=== PATIENT | female | born 1990 | race Caucasian/White ===

== ENCOUNTER → 2017-07-09 | Outpatient (CLI) | payer SELFPAY ==
--- NOTE | 2017-07-09 16:40 | RADIOLOGY REPORT (SQ) ---
EXAM DESCRIPTION: U/S OB 14+ TRNABD 1GES W/O DOP COMPLETED DATE/TIME: 07/09/2017 2:04 pm REASON FOR STUDY: ENCOUNTER FOR SUPERVISION OF OTHER NORMAL , SECOND TRIMESTER (Z34. Z34.82 ENCOUNTER FOR SUPRVSN OF NORMAL , SECOND TRI COMPARISON: None. TECHNIQUE: Static and Dynamic grayscale imaging performed of gravid uterus using transabdominal appr oach. Additional selected color Doppler and spectral images recorded. All stored on PACS. LIMITATIONS: None. FINDINGS: EGA: 15 weeks 0 days MANJINDER: 12/31/2017 EFW: Not calculated grams PERCENTILE: Not applicable LVP: 2.4 cm PLACENTA: Anterior grade 1 PRESENTATION: Variable ANATOMY: HEART RATE: 157 beats per minute. FOUR CHAMBER HEART: Visualized. THREE VESSEL CORD: Yes. CORD INSERTION: Visualized. KIDNEYS AND BLADDER: Visualized. Appear normal. STOMACH: Visualized. Appears normal. SPINE: Normal as visualized. BRAIN AND LATERAL VENTRICLES: Visualized. Appear normal. OTHER: Upper and lower extremities visualized. MATERNAL ADNEXA: Maternal ovaries not visualized. CERVICAL LENGTH: 3.2 cm. Closed. OTHER: No other significant finding. IMPRESSION: LIVING INTRAUTERINE . ESTIMATED GESTATIONAL AGE 15 weeks 0 days NO VISUALIZED ANOMALIES. Trimester of : Second trimester - 13 weeks 1 day to 27 weeks 6 days. TECHNICAL DOCUMENTATION: JOB ID: [id number] [employer]- All Rights Reserved
== END ==
LOC: RAD 12:46
PROVIDERS: ATTEND Nurse Practitioner Women's Health
DX: Z34.82 Encounter for supervision of other normal pregnancy, second trimester (principal)
CPT/HCPCS: 76805

== ENCOUNTER 2017-11-25 12:54 | Outpatient (CLI) | payer MEDICAID ==
[2017-11-25 14:04] LABS: URINE AMPHETAMINES SCREEN NEGATIVE; URINE BARBITURATES SCREEN NEGATIVE; URINE BENZODIAZEPINES SCREEN NEGATIVE; URINE COCAINE SCREEN NEGATIVE; URINE MARIJUANA (THC) SCREEN NEGATIVE; URINE METHADONE SCREEN NEGATIVE; URINE PHENCYCLIDINE SCREEN NEGATIVE
[2017-11-25 14:26] LABS: AMORPHOUS SEDIMENT,URINE TRACE /HPF; APPEARANCE,URINE TURBID; BILIRUBIN,URINE NEGATIVE (NEGATIVE); COLOR,URINE YELLOW; GLUCOSE, URINE NEGATIVE (NEGATIVE); KETONES,URINE NEGATIVE (NEGATIVE); LEUKOCYTE ESTERASE,URINE NEGATIVE (NEGATIVE); NITRITE,URINE NEGATIVE (NEGATIVE); PROTEIN,URINE NEGATIVE (NEGATIVE); URINE SPECIFIC GRAVITY 1.017
--- NOTE | 2017-11-25 14:39 | Non Stress Test Report ---
Non Stress Test Datetime Report Generated by CPN: 11/25/2017 14:39 DEMOGRAPHIC EGA NST: 35.4 INDICATION Indication for Study: Diabetes Mellitus; Ordered by Provider MONITORING Monitor Explained: Monitor Explained; Test Explained; Patient Verbalized Understanding Time on Monitor: 11/25/2017 13:25 Time off Monitor: 11/25/2017 14:32 NST Duration: 67 NST INTERVENTIONS NST Interventions: PO Hydration; Reposition Patient Physician Notified NST: A.Gonzalez, CNM BABY A: [id number] BABY A Movement : Present Contraction Frequency : NONE FHR Baseline : 130 Accelerations : 15X15 Decelerations : None Variability : Moderate 6-25bpm NST Review: Meets Criteria for Reactive NST NST Review and Verified By : APRIL Alfaro Results: Reactive NST REPORT Report Trigger: Send Report
== END 2017-11-25 14:36 | disposition home or self-care (01) ==
LOC: LC 12:54
PROVIDERS: ATTEND Obstetrics & Gynecology
PROC: 4A1HXCZ Monitoring of Products of Conception, Cardiac Rate, External Approach (ICD-10-PCS; principal; 2017-11-25)
DX: O24.419 Gestational diabetes mellitus in pregnancy, unspecified control (principal); Z3A.35 35 weeks gestation of pregnancy
CPT/HCPCS: 59025; 80307; 81001

== ENCOUNTER 2017-12-24 21:04 | Outpatient (CLI) | payer MEDICAID ==
[2017-12-24 21:29] LABS: APPEARANCE,URINE CLEAR; BILIRUBIN,URINE NEGATIVE (NEGATIVE); COLOR,URINE STRAW; GLUCOSE, URINE NEGATIVE (NEGATIVE); KETONES,URINE NEGATIVE (NEGATIVE); LEUKOCYTE ESTERASE,URINE NEGATIVE (NEGATIVE); NITRITE,URINE NEGATIVE (NEGATIVE); PROTEIN,URINE NEGATIVE (NEGATIVE); URINE SPECIFIC GRAVITY 1.004; UROBILINOGEN,URINE NEGATIVE mg/dL (<2.0)
[2017-12-24 21:54] LABS: URINE AMPHETAMINES SCREEN NEGATIVE; URINE BARBITURATES SCREEN NEGATIVE; URINE BENZODIAZEPINES SCREEN NEGATIVE; URINE COCAINE SCREEN NEGATIVE; URINE MARIJUANA (THC) SCREEN NEGATIVE; URINE METHADONE SCREEN NEGATIVE; URINE PHENCYCLIDINE SCREEN NEGATIVE
[2017-12-24] MEDS ORDERED: HYDROXYZINE PAMOATE 50 MG CAPSULE PO ONE (23:52)
== END 2017-12-25 | disposition home or self-care (01) ==
LOC: LC 21:04
PROVIDERS: ATTEND Student in an Organized Health Care Education/Training Program
PROC: 4A1HXCZ Monitoring of Products of Conception, Cardiac Rate, External Approach (ICD-10-PCS; principal; 2017-12-24)
DX: O47.1 False labor at or after 37 completed weeks of gestation (principal); Z3A.39 39 weeks gestation of pregnancy
CPT/HCPCS: 59025; 80307; 81001

== ENCOUNTER 2017-12-27 20:40 | Outpatient (CLI) | payer MEDICAID ==
--- NOTE | 2017-12-27 20:50 | Non Stress Test Report ---
Non Stress Test Datetime Report Generated by CPN: 12/27/2017 20:50 DEMOGRAPHIC Test Number: 2 EGA NST: 39.5 INDICATION Indication for Study: Ordered by Provider VITAL SIGNS Temperature - NST: 98.4 Pulse - NST: 70 RESP - NST: 16 NBPSYS NST: 114 NBPDIA NST: 59 URINE RESULTS Urine Protein, NST: Negative Urine Ketones - NST: Negative Urine Glucose - NST: Negative Urine Blood - NST: Negative MONITORING Monitor Explained: Monitor Explained; Test Explained; Patient Verbalized Understanding Time on Monitor: 12/24/2017 21:20 Time off Monitor: 12/24/2017 21:48 NST Duration: 28 NST INTERVENTIONS NST Interventions: None Physician Notified NST: Dr. Guido BABY A: [id number] BABY A Movement : Present Contraction Frequency : 2-7 FHR Baseline : 120 Accelerations : 15X15 Decelerations : None Variability : Moderate 6-25bpm NST Review: Meets Criteria for Reactive NST NST Review and Verified By : B Morales, RN NST Results: Reactive NST REPORT Report Trigger: Send Report
[2017-12-27 21:17] LABS: APPEARANCE,URINE SLIGHTLY-CLOUDY; BILIRUBIN,URINE NEGATIVE (NEGATIVE); COLOR,URINE YELLOW; GLUCOSE, URINE NEGATIVE (NEGATIVE); KETONES,URINE NEGATIVE (NEGATIVE); LEUKOCYTE ESTERASE,URINE NEGATIVE (NEGATIVE); NITRITE,URINE NEGATIVE (NEGATIVE); PROTEIN,URINE NEGATIVE (NEGATIVE); URINE SPECIFIC GRAVITY 1.024
[2017-12-27 21:31] LABS: URINE AMPHETAMINES SCREEN NEGATIVE; URINE BARBITURATES SCREEN NEGATIVE; URINE BENZODIAZEPINES SCREEN NEGATIVE; URINE COCAINE SCREEN NEGATIVE; URINE MARIJUANA (THC) SCREEN NEGATIVE; URINE METHADONE SCREEN NEGATIVE; URINE PHENCYCLIDINE SCREEN NEGATIVE
--- NOTE | 2017-12-27 23:46 | Non Stress Test Report ---
Non Stress Test Datetime Report Generated by CPN: 12/27/2017 23:46 DEMOGRAPHIC Test Number: 4 EGA NST: 40.1 INDICATION Indication for Study: Ordered by Provider VITAL SIGNS Temperature - NST: 97.7 Pulse - NST: 57 RESP - NST: 14 NBPSYS NST: 110 NBPDIA NST: 61 URINE RESULTS Urine Protein, NST: Negative Urine Ketones - NST: Negative Urine Glucose - NST: Negative Urine Blood - NST: Negative MONITORING Monitor Explained: Monitor Explained; Test Explained; Patient Verbalized Understanding Time on Monitor: 12/27/2017 21:03 Time off Monitor: 12/27/2017 21:47 NST Duration: 44 NST INTERVENTIONS NST Interventions: PO Hydration Physician Notified NST: Dr. Abhilash BABY A Movement : Present Contraction Frequency : 6-9 FHR Baseline : 130 Accelerations : 15X15 Decelerations : None Variability : Moderate 6-25bpm NST Review: Meets Criteria for Reactive NST NST Review and Verified By : B Morales, RN NST Results: Reactive NST REPORT Report Trigger: Send Report
== END 2017-12-27 23:45 | disposition home or self-care (01) ==
LOC: LC 20:40
PROVIDERS: ATTEND Obstetrics & Gynecology
PROC: 4A1HXCZ Monitoring of Products of Conception, Cardiac Rate, External Approach (ICD-10-PCS; principal; 2017-12-27)
DX: O47.1 False labor at or after 37 completed weeks of gestation (principal); Z3A.40 40 weeks gestation of pregnancy
CPT/HCPCS: 59025; 80307; 81005

== ENCOUNTER 2017-12-28 08:53 | Inpatient (IN) | payer MEDICAID ==
[2017-12-28] MEDS ORDERED: RINGERS SOLUTION,LACTATED 1,000 ML IV PRN (09:20)
[2017-12-28] MEDS ORDERED: RINGERS SOLUTION,LACTATED 300 ML IV ONE (09:20)
[2017-12-28 09:28] LABS: APPEARANCE,URINE CLEAR; BILIRUBIN,URINE NEGATIVE (NEGATIVE); COLOR,URINE YELLOW; GLUCOSE, URINE NEGATIVE (NEGATIVE); KETONES,URINE NEGATIVE (NEGATIVE); LEUKOCYTE ESTERASE,URINE NEGATIVE (NEGATIVE); NITRITE,URINE NEGATIVE (NEGATIVE); PROTEIN,URINE NEGATIVE (NEGATIVE); UROBILINOGEN,URINE NEGATIVE mg/dL (<2.0)
[2017-12-28 09:47] LABS: URINE AMPHETAMINES SCREEN NEGATIVE; URINE BARBITURATES SCREEN NEGATIVE; URINE BENZODIAZEPINES SCREEN NEGATIVE; URINE COCAINE SCREEN NEGATIVE; URINE MARIJUANA (THC) SCREEN NEGATIVE; URINE METHADONE SCREEN NEGATIVE; URINE PHENCYCLIDINE SCREEN NEGATIVE
--- NOTE | 2017-12-28 09:55 | Admission Physical ---
Datetime Report Generated by CPN: 12/28/2017 09:55 CURRENT ADMISSION Chief Complaint: Uterine Contractions Indication for Induction: Not Applicable Admit Impression : Active Labor; Intact Membranes Admit Plan: Admit to Unit; Initiate Labor Protocol ALLERGIES Medication Allergies: Yes Medication Allergies: codeine (12/28/2017); amoxicillin (12/28/2017) Latex: No Latex Allergies Food Allergies: N/A Environmental Allergies: N/A OBSTETRICAL HISTORY EDC: 12/26/2017 00:00 : 2 Para: 1 Term: 1 : 0 SAB: 0 IAB: 0 Ectopic: 0 Livin Cesareans: 0 VBACs: 0 Multiple Births: 0 Gestational Diabetes: Yes Rh Sensitization: No Incompetent Cervix: No ANDREA: No Infertility: No ART Treatment: No Uterine Anomaly: No IUGR: No Hx Previous C/S: No Macrosomia: No Hx Loss/Stillborn: No PIH: Yes Hx : No Placenta Previa/Abruption: No Depression/PP Depression: No PTL/PROM: No Post Hemorrhage: No Current Procedures: Ultrasound; NST Obstetrical History Comments: G1 - 2008, , Boy 39 weeks, preeclampsia G2 - current , GDM SEE RECORDS Alcohol: No Marijuana : No Cocaine: No Other Illicit Drugs: No Cigarettes: Never Smoker. [id number] MEDICAL HISTORY Diabetes: Yes Diabetes Type: Gestational Diabetes Blood Transfusion: No Pulmonary Disease (Asthma, TB): No Breast Disease: No Hypertension: No Medical Records Clerk Surgery: No Heart Disease: No Hosp/Surgery: Yes Autoimmune Disorder: No Anesthetic Complications: No Kidney Disease: No Abnormal Pap Smear: No Neuro/Epilepsy: No Psychiatric Disorders: No Other Medical Diseases: No Hepatitis/Liver Disease: No Significant Family History: No Varicosities/Phlebitis: No Trauma/Violence : No Thyroid Dysfunction: No Medical History Comments: Lazy eye surgery in 1991, preeclampsia with first , current GDM INFECTIOUS HISTORY Gonorrhea: No Genital Herpes: No Chlamydia: Yes Tuberculosis: No Syphilis: No Hepatitis: No HIV/AIDS Exposure: No Rash or Viral Illness: No HPV: No Infectious History Comments: Chlamydia in 2008 PHYSICAL EXAM General: Normal HEENT: Deferred Neurologic: Deferred Thyroid: Normal Heart: Normal Lungs: Normal Breast: Deferred Back: Normal Abdomen: Normal Genitourinary Exam: Normal Extremities: Normal DTRs: Normal Pelvic Type: Adequate Physical Exam Comments: G 2 P 1, pelvis proven for 7-4 GDM, Dx 1-15 Depression/Anxiety= CCNC GBS neg Vital Signs: Reviewed VAGINAL EXAM Dilatation: 6 Effacement: 75 Station: -1 MEMBRANES Membranes: Intact FETUS A EGA: 40.2 Monitoring: External US FHR- Baseline: 130 Variability: Moderate 6-25bpm Accelerations: 15X15 Decelerations: None FHR Category: Category I Admit Comment: Admitted to in labor, plans to do a natural labor, membranes intact, uc's q 3-5 min, Cat 1 strip, POC reviewed PLANS FOR LABOR AND DELIVERY Labor and Delivery: None Pain Management: None Feeding Preference: Breast Benefit of Breast Feed Discussed: Yes Circumcision: Yes INFORMED CONSENT Assignment: Jeison Abdul MD Signature: with User ID: [email or web address] : with User ID: [email or web address]
[2017-12-28] MEDS ORDERED: OXYTOCIN/NORMAL SALINE 20 UNIT/1,000 ML RTUINJ ONE (10:00)
[2017-12-28] MEDS ORDERED: MISOPROSTOL 0.2 MG TABLET ONE (10:00)
[2017-12-28] MEDS ORDERED: LIDOCAINE 1% INJ-PF (10 MG/ML) 30 ML SDV ONE (10:00)
[2017-12-28 10:27] LABS: ABSOLUTE LYMPHOCYTES (AUTO) 1.6 10^3/uL (0.5-4.7); ABSOLUTE MONOCYTES (AUTO) 0.9 10^3/uL (0.1-1.4); ABSOLUTE NEUT (AUTO) 15.4 10^3/uL (1.7-8.2); BASOPHILS % (AUTO) 0.2 % (0-2); EOSINOPHILS % (AUTO) 0.1 % (0-6); HEMATOCRIT 35.2 % (36.0-47.0); HEMOGLOBIN 12.1 g/dL (12.0-15.5); MEAN CORPUSCULAR HEMOGLOBIN 30.4 pg (27.0-33.4); MEAN CORPUSCULAR HGB CONC 34.2 g/dL (32.0-36.0); MEAN CORPUSCULAR VOLUME 89 fl (80-97); MONOCYTES % (AUTO) 4.8 % (3-13); PLATELET COUNT 299 10^3/uL (150-450); RED BLOOD COUNT 3.97 10^6/uL (3.72-5.28); SEGMENTED NEUTROPHILS % (AUTO) 85.9 % (42-78); TOTAL CELLS COUNTED % (AUTO) 100 %; WHITE BLOOD COUNT 17.9 10^3/uL (4.0-10.5)
[2017-12-28] MEDS ORDERED: IBUPROFEN 800 MG TABLET ONE (11:29)
[2017-12-28] MEDS ORDERED: ONDANSETRON HCL INJ/PF 4 MG/2 ML SDV ONE (11:30)
[2017-12-28] MEDS ORDERED: BENZOCAINE/MENTHOL AEROSOL SPRAY 56 ML TOP PRN (11:31)
[2017-12-28] MEDS ORDERED: ZOLPIDEM TARTRATE 5 MG TABLET PO PRN (11:31)
[2017-12-28] MEDS ORDERED: OXYTOCIN/NORMAL SALINE 20 UNIT/1,000 ML RTUINJ IV PRN (11:31)
[2017-12-28] MEDS ORDERED: DIBUCAINE 1% OINTMENT 28 GM TP PRN (11:31)
[2017-12-28] MEDS ORDERED: DIPH/PERTUSS(ACELL)/TETANUS VAC/PF 0.5 ML SYR (>=10YO) IM PRN (11:31)
[2017-12-28] MEDS ORDERED: MEASLES,MUMPS&RUBELLA VACC/PF 0.5 ML VIAL SUBCUT PRN (11:31)
--- NOTE | 2017-12-28 13:05 | Warning Signs in Babies ---
VOD Warning Signs Datetime Report Generated by [facility]: 12/28/2017 13:05 VOD#[id number] -Warning Signs in Babies: Viewed with Parent(s)/Family (11/25/2017 13:17:Shaggy Rodriguez RN)
[2017-12-28] MEDS: IBUPROFEN 800 MG TABLET PO SCH ×2 (14:08→21:51)
[2017-12-28] MEDS: DOCUSATE SODIUM 100 MG CAPSULE PO SCH (17:31)
[2017-12-28] MEDS: FERROUS SULFATE 325 MG TABLET PO SCH (17:31)
[2017-12-28] MEDS ORDERED: ACETAMINOPHEN 325 MG TABLET ONE (18:28)
[2017-12-29] MEDS: IBUPROFEN 800 MG TABLET PO SCH ×3 (05:46→21:10)
[2017-12-29 07:30] LABS: HEMATOCRIT 33.4 % (36.0-47.0); HEMOGLOBIN 11.4 g/dL (12.0-15.5); MEAN CORPUSCULAR HEMOGLOBIN 30.6 pg (27.0-33.4); MEAN CORPUSCULAR VOLUME 90 fl (80-97); PLATELET COUNT 265 10^3/uL (150-450); RED BLOOD COUNT 3.71 10^6/uL (3.72-5.28); RED CELL DISTRIBUTION WIDTH 13.2 % (11.5-14.0); WHITE BLOOD COUNT 15.7 10^3/uL (4.0-10.5)
[2017-12-29] MEDS: DOCUSATE SODIUM 100 MG CAPSULE PO SCH ×2 (10:19→18:14)
[2017-12-29] MEDS: PRENATAL VITAMIN W DHA CAPSULE PO SCH (10:20)
[2017-12-29] MEDS: SENNOSIDES/DOCUSATE 8.6-50 MG 1 EACH TABLET PO SCH (10:20)
[2017-12-29] MEDS: FERROUS SULFATE 325 MG TABLET PO SCH ×2 (10:20→18:14)
--- NOTE | 2017-12-29 11:01 | PDOC PROGRESS REPORT ---
Subjective-OB Progress Note for:: 12/29/17 Subjective: tolerating diet, bleeding slowing, pain controlled with current meds. denies needs Physical Exam (OB) Vital Signs: Temp Pulse Resp BP Pulse Ox 98.2 F 51 L 16 124/65 98 12/29/17 10:15 12/29/17 10:15 12/29/17 10:15 12/29/17 07:33 12/29/17 10:15 Intake & Output 12/28/17 12/29/17 12/30/17 06:59 06:59 06:59 Weight 75.1 kg - Abdomen Description: Soft Hernia Present: No Fundal Description: Firm, Midline Fundal Height: u/u - u/2 - Abdominal Inspection: Normal Tenderness: Nontender - Extremities Lower extremities: Juany's sign - neg Calf: Normal, Nontender Objective-Diagnostic Laboratory: 12/29/17 06:50 12/28/17 12/29/17 10:00 06:50 WBC 15.7 H RBC 3.71 L Hgb 11.4 L Hct 33.4 L MCV 90 MCH 30.6 MCHC 34.0 RDW 13.2 Plt Count 265 Blood Type O POSITIVE Antibody Screen NEGATIVE Assessment and Plan(PN) - Assessment and Plan (1) Vaginal delivery Is this a current diagnosis for this admission?: Yes - Time Spent with Patient Time with patient: Less than 15 minutes - Disposition Anticipated Discharge: Home Within: within 24 hours
[2017-12-30] MEDS: IBUPROFEN 800 MG TABLET PO SCH (05:14)
[2017-12-30 08:42] VITALS: BP 132/77
--- NOTE | 2017-12-30 09:10 | PDOC DISCHARGE SUMMARY ---
Final Diagnosis Discharge Date: 12/30/17 - Final Diagnosis (1) Vaginal delivery Is this a current diagnosis for this admission?: Yes Discharge Data - Discharge Medication Prescriptions: Ibuprofen [Motrin 800 mg Tablet] 800 mg PO Q8 #90 tablet Home Medications: Doxylamine Succinate/Vit B6 [Diclegis Dr 10-10 mg Tablet] 1 each PO DAILY No122/Iron/Folic Acid [ Multi Tablet] 1 each PO DAILY 11/25/17 Ibuprofen [Motrin 800 mg Tablet] 800 mg PO Q8 #90 tablet 12/30/17 Reason(s) for Admission: Onset of Labor Intrapartum Procedure(s): Spontaneous Vaginal Delivery - Diagnosis Test Laboratory: Temp Pulse Resp BP Pulse Ox 98.0 F 70 17 132/77 H 100 12/30/17 07:45 12/30/17 07:45 12/30/17 07:45 12/30/17 07:45 12/30/17 07:45 12/28/17 12/28/17 12/29/17 09:00 10:00 06:50 RBC 3.97 3.71 L Hgb 12.1 11.4 L Hct 35.2 L 33.4 L Urine Opiates Screen NEGATIVE - Discharge information/Instructions Discharge Activity: Activity As Tolerated Discharge Diet: Regular Disposition: HOME, SELF-CARE Follow up with: [facility] in: 4
[2017-12-30] MEDS: SENNOSIDES/DOCUSATE 8.6-50 MG 1 EACH TABLET PO SCH (10:28)
[2017-12-30] MEDS: DOCUSATE SODIUM 100 MG CAPSULE PO SCH (10:28)
[2017-12-30] MEDS: PRENATAL VITAMIN W DHA CAPSULE PO SCH (10:28)
[2017-12-30] MEDS: FERROUS SULFATE 325 MG TABLET PO SCH (10:29)
--- NOTE | 2018-01-07 19:07 | Delivery Summary ---
Del Sum A-C Datetime Report Generated by CPN: 01/07/2018 19:07 DELIVERY PERSONNEL DELIVERY PERSONNEL: [id number] Delivery Doctor:: Norma Griffith CNM Labor and Delivery Nurse:: Kasey Lara RN Labor and Delivery Nurse:: RJ Olivares Nursery Nurse:: Shanelle Dos Santos RN Seaming Machine Operator/ACCOUNTS OFFICER: Jaquelin Steele, ST MATERNAL INFORMATION Delivery Anesthesia: None Medications After Delivery: Pitocin Drip 20 Units/1000ml NSS Meds After Delivery Comment: Pitocin 20 Units in 1000 ML NS Bolusing Estimated Blood Loss (ml): 200 Maternal Complications: None Provider Comments: viable male from OA to RICHARD, after delivery of vtx, pt stopped pushing, Mario and baby delivered within 1 minute from suprapubic pressure. Placed on mothers abd, cord clamped and cut by father after 2 minutes. Spont delivery of grossly nl intact placenta, 3 VC, EBL 200 cc, Pitocin and cytotec 600mcg via rectum Baby and mom in recovery in stable condition NC x 1 easily reduced LABOR SUMMARY EDC: 12/26/2017 00:00 No. Babies in Womb: 1 Attempted: No Labor Anesthesia: None LABOR INFORMATION Reason for Induction: Not Applicable Onset of Labor: 12/28/2017 04:00 Complete Dilatation: 12/28/2017 10:21 Oxytocin: N/A Group B Beta Strep: negative Antibiotics # of Doses: 0 Antibiotics Time of Last Dose: n/a Name of Antibiotic Given: n/a Steroids Given: None Reason Steroids Not Administered: Not Applicable MEMBRANES Membranes Rupture Method: Artificial Rupture of Membranes: 12/28/2017 10:21 Length of Rupture (hr): 0.55 Amniotic Fluid Color: Clear Amniotic Fluid Amount: Moderate Amniotic Fluid Odor: Normal STAGES OF LABOR Stage 1 hr: 6 Stage 1 min: 21 Stage 2 hr: 0 Stage 2 min: 33 Stage 3 hr: 0 Stage 3 min: 4 Total Time in Labor hr: 6 Total Time in Labor min: 58 VAGINAL DELIVERY Episiotomy: None Laceration #1: None Laceration Extension #1: N/A Laceration Repair: Not Applicable CSECTION DELIVERY Primary Indication: N/A Secondary Indication: N/A CSection Incidence: N/A Labor: N/A Elective: N/A CSection Incision: N/A BABY A INFORMATION Delivery Date/Time: 12/28/2017 10:54 Method of Delivery: Vaginal Born in Route : No : N/A Forceps: N/A Vacuum Extraction: N/A Shoulder Dystocia : No PRESENTATION/POSITION BABY A Presentation: Cephalic Cephalic Presentation: Vertex Vertex Position: Left Occipital Anterior Breech Presentation: N/A PLACENTA INFORMATION BABY A Placenta Delivery Time : 12/28/2017 10:58 Placenta Method of Delivery: Spontaneous Placenta Status: Delivered SCORES BABY A Heart Rate 1 min: >100 bpm Resp Effort 1 min: Good Cry Reflex Irritability 1 min: Cough or Sneeze or Pulls Away Muscle Tone 1 min: Active Motion Color 1 min: Blue/Pale Resuscitation Effort 1 min: Tactile Stimulation SCORE 1 MIN: 8 Heart Rate 5 min: >100 bpm Resp Effort 5 min: Good Cry Reflex Irritability 5 min: Cough or Sneeze or Pulls Away Muscle Tone 5 min: Active Motion Color 5 min: Body [place], Extremities Blue Resuscitation Effort 5 min: N/A SCORE 5 MIN: 9 Resuscitation Effort 10 min: N/A INFORMATION BABY A Gestational Age at Delivery: 40.2 Gestational Status: Full Term- 39- 40.6 Weeks Outcome : Liveborn Infant Condition : Stable Sex: Male IDENTIFICATION BABY A Verification Date/Time: 12/28/2017 11:40 ID Band Number: [id number] Mother's Name Verified: Yes RN Verifying Infant: Shaggy Rodriguez, RN, Trista Vickey, RN WEIGHT/LENGTH BABY A Birthweight (gm): 3780 Infant Weight (lb): 8 Weight (oz): 5 Infant Length (in): 20.00 Length (cm): 50.80 CORD INFORMATION BABY A No. Cord Vessels: 3 Nuchal Cord : Around Neck x1, Loose Cord Blood Taken: Yes-For Eval (Mom's Blood Type - or O+) Infant Suction: Mouth; Nose ASSESSMENT BABY A Complications: None Physical Findings at Delivery: Within Normal Limits Respirations: Appears Normal Skin to Skin: Yes Skin to Skin Time (min): 60 Intermediate Card Tender/ALS Called : No Care By: Geo Dos Santos RN Transferred To: Remains with Mother BABY B INFORMATION : N/A
== END 2017-12-30 13:01 | disposition home or self-care (01) | DRG 775 ==
LOC: LC 08:53 → LR 09:21 → 2S 13:31
PROVIDERS: ADMIT Obstetrics & Gynecology Gynecology; ATTEND Obstetrics & Gynecology Gynecology
PROC: 10E0XZZ Delivery of Products of Conception, External Approach (ICD-10-PCS; principal; 2017-12-28)
PROC: 10907ZC Drainage of Amniotic Fluid, Therapeutic from Products of Conception, Via Natural or Artificial Opening (ICD-10-PCS; 2017-12-28)
PROC: 4A1HXCZ Monitoring of Products of Conception, Cardiac Rate, External Approach (ICD-10-PCS; 2017-12-28)
DX: O24.429 Gestational diabetes mellitus in childbirth, unspecified control (principal); O69.81X0 Labor and delivery complicated by cord around neck, without compression, not applicable or unspecified; Z88.6 Allergy status to analgesic agent; Z88.0 Allergy status to penicillin; Z28.21 Immunization not carried out because of patient refusal; Z3A.40 40 weeks gestation of pregnancy; Z37.0 Single live birth
CPT/HCPCS: 36415; 80307; 81005; 85025; 85027; 86592; 86850; 86900; 86901; J2405; J2590; J3490